=== PATIENT | female | born 1960 | race Caucasian/White ===

== ENCOUNTER 2017-03-20 16:54 | Emergency (ER) | payer OTHER ==
[2017-03-20] MEDS: IBUPROFEN 600 MG TAB PO (20:51)
[2017-03-20] MEDS: ONDANSETRON (ODT) 4 MG TAB ODT (20:52)
[2017-03-20] MEDS: ALBUTEROL 0.083% (NEB) 2.5 MG/3 ML AMP HHN (21:00)
== END 2017-03-20 23:15 | disposition home or self-care (01) ==
LOC: FTE 16:54
DX: J32.9 Chronic sinusitis, unspecified (principal); E11.9 Type 2 diabetes mellitus without complications
CPT/HCPCS: 71046; 94664; 99284-25